=== PATIENT | male | born 1970 | race Caucasian/White ===

== ENCOUNTER → 2016-08-13 | Outpatient (CLI) | payer OTHER ==
[~2016-08-13] VITALS: Ht 185.4 cm; Wt 185.9 kg
[~2016-08-13] MED LIST: AMLODIPINE BESY10 MG PO; APRISO0.375 GM PO; CLARITIN10 M3 PO; ERGOCALCIF50000 UNIT PO; GLUCOPHAGE1000 MG PO; GLUCOPHAGE500 MG PO; HYZAAR 100-21 TABLET PO; NASACORT10.8 ML BOTH NARES; NASONEB NASAL1 EACH MC; OMEPRAZOLE20 MG PO; PURINETHOL50 MG PO; VITAMIN D35000 UNIT PO
[2016-08-13 09:09] LABS: POINT-OF-CARE METER ID UU13113694
[2016-08-13 10:54] LABS: POINT-OF-CARE METER ID UU13113819
== END | disposition home or self-care (01) ==
LOC: AMB 07-09 08:00
PROVIDERS: Internal Medicine
DX: K57.30 Diverticulosis of large intestine without perforation or abscess without bleeding (principal); D12.3 Benign neoplasm of transverse colon; K63.5 Polyp of colon; K63.3 Ulcer of intestine; K21.9 Gastro-esophageal reflux disease without esophagitis; I10 Essential (primary) hypertension; E66.9 Obesity, unspecified; E11.9 Type 2 diabetes mellitus without complications; E55.9 Vitamin D deficiency, unspecified; Z82.49 Family history of ischemic heart disease and other diseases of the circulatory system; Z80.0 Family history of malignant neoplasm of digestive organs; Z79.84 Long term (current) use of oral hypoglycemic drugs; Z88.0 Allergy status to penicillin; Z68.43 Body mass index [BMI] 50.0-59.9, adult
CPT/HCPCS: 82948; 88305; 93005; J2250

== ENCOUNTER 2017-11-05 13:55 | Emergency (ER) | payer OTHER ==
[~2017-11-05] VITALS: Ht 185.4 cm; Wt 167.1 kg
[~2017-11-05 13:55] MED LIST changes: +TYLENOL EXTRA500 MG PO; +ZANTAC150 MG PO
[2017-11-05 15:08] LABS: HEMATOCRIT 31.7 % (38.0-50.0); HEMOGLOBIN 11.7 G/DL (12.5-16.6); MCH 38.5 PG (29.0-34.0); MCHC 36.9 G/DL (30.0-36.0); MCV 104.3 FL (86-99); PLATELET COUNT 108 K/uL (156-360); RBC DIS.WIDTH-CV 14.7 % (11.8-14.6); RBC DIS.WIDTH-SD 56.3 % (39-53); RED BLOOD COUNT 3.04 M/uL (4.00-5.50); WHITE BLOOD COUNT 5.4 K/uL (4.1-10.2)
[2017-11-05 15:22] LABS: CHLORIDE 97 mEq/L (99-109); POTASSIUM 3.4 mEq/L (3.7-5.4); SODIUM 135 mEq/L (136-147)
[2017-11-05 15:24] LABS: GLUCOSE 147 mg/dL (70-99)
[2017-11-05 15:28] LABS: CREATININE 0.8 mg/dL (0.6-1.3); GFR ESTIMATE (CALCULATED) > 59 mL/min/ (58.99-99999)
[2017-11-05 15:29] LABS: UREA NITROGEN (BUN) 7 mg/dL (9-23)
[2017-11-05 15:30] LABS: TROP-I INTERPRETATION NEGATIVE; TROPONIN-I < 0.01 ng/mL (0.0-0.30)
[2017-11-05 18:26] LABS: TROP-I INTERPRETATION NEGATIVE; TROPONIN-I < 0.01 ng/mL (0.0-0.30)
[2017-11-05 19:15] VITALS: BP 119/58
== END 2017-11-05 19:15 | disposition home or self-care (01) ==
LOC: EME 13:55
PROVIDERS: Nurse Practitioner Family
DX: R10.13 Epigastric pain (principal); D64.9 Anemia, unspecified; K21.9 Gastro-esophageal reflux disease without esophagitis; R07.89 Other chest pain; I10 Essential (primary) hypertension; E11.9 Type 2 diabetes mellitus without complications; Z79.84 Long term (current) use of oral hypoglycemic drugs; Z90.49 Acquired absence of other specified parts of digestive tract; Z88.0 Allergy status to penicillin
CPT/HCPCS: 71046; 80048; 84484; 85027; 93005; 99281; 99284